=== PATIENT | female | born 1980 | race Caucasian/White ===

== ENCOUNTER 2021-10-30 17:21 | Outpatient (CLI) | payer BC, SELFPAY ==
--- NOTE | ~2021-10-30 | MM_ITS ---
EXAMINATION: MM scrn nabila implant BI w jared HISTORY: Screening mammogram TECHNIQUE: Craniocaudal and mediolateral oblique 3-D tomosynthesis images with implant displacement a nd synthetic 2-D images were generated. Craniocaudal and mediolateral oblique views of the breasts wi thout implant displacement were obtained using full field digital mammography. CAD analysis was submi tted and interpreted. COMPARISON: No prior mammogram is available for comparison at this institution. BREAST PARENCHYMAL COMPOSITION: The breasts are heterogeneously dense, which may obscure small masses . FINDINGS: There is no evidence of suspicious mass, calcification, or architectural distortion to sugg est malignancy in either breast. There has been no suspicious interval change. IMPRESSION: 1. No mammographic evidence of malignancy. 2. Recommend routine screening mammography in one year. BI-RADS Category 1: Negative Reviewed, dictated and finalized at location A.
== END 2021-10-30 17:22 | disposition home or self-care (01) ==
LOC: ANHIMG 17:23
PROVIDERS: PCP Family Medicine; Visit Provider Nurse Practitioner Family
DX: Z12.31 Encounter for screening mammogram for malignant neoplasm of breast (principal)
CPT/HCPCS: 77063; 77067

== ENCOUNTER 2023-11-08 13:58 | Emergency (ER) | payer BC, SELFPAY ==
--- NOTE | ~2023-11-08 | CT_ITS ---
EXAMINATION: CT soft tissue neck w con DATE: 11/08/2023 16:23 INDICATION: TECHNIQUE: Computed tomography (CT) of the neck was performed with 75 mL Omnipaque-350 intravenous co ntrast. The dose-length product was 537.14 mGy-cm. COMPARISON: None FINDINGS: Bilateral palatine tonsillar enlargement with surrounding nasopharyngeal and pharyngeal edema. Diffus e right tonsillar hyperemia. Irregular low-density areas in the left tonsil likely edema or phlegmon, with thin rim enhancement. No definite tonsillar or peritonsillar abscess. The thyroid gland is unre markable. The submandibular and parotid glands are symmetric. Enlarged upper anterior cervical no tiara. There are no masses identified. The superior mediastinum is unremarkable. The airway is un remarkable. Parapharyngeal and pre-glottic fat planes are preserved. Normal enhancing neck vessel s. The orbits are unremarkable. Retention cyst/polyp in the right maxillary sinus, the remaining s inuses and mastoid air cells are well aerated. Clear lungs. Unremarkable regional bones. IMPRESSION: Bilateral palatine tonsillitis. Tonsillar edema/phlegmon in the left palatine tonsil, no definite ton sillar or peritonsillar abscess detected at this time. Upper anterior cervical lymphadenopathy. Reviewed, dictated and finalized at location [facility]. IMPRESSION: Bilateral palatine tonsillitis. Tonsillar edema/phlegmon in the left palatine t onsil, no definite tonsillar or peritonsillar abscess detected at this time. Up per anterior cervical lymphadenopathy.
[2023-11-08 14:19] VITALS: BP 103/63; PULSE 96; RESP 15; TEMP 36.7; O2SAT 100
--- NOTE | 2023-11-08 15:12 | ED.GENADULT ---
HPI - General Adult General Chief complaint: Unspecified <Jasmyne Child November, PAPER ROLLER - Last Filed: 11/08/23 15:21> Stated complaint: ST <Jasmyne Child November, PAPER ROLLER - Last Filed: 11/08/23 15:21> Time Seen by Provider: 11/08/23 15:13 <Jasmyne Child November, PAPER ROLLER - Last Filed: 11/08/23 15:21> Focused HPI: Kim Ramirez is a 43 y/o female who presents with reports of severe sore throat that started yesterday, and now getting worse with fevers and feels like she can't swallow. She states the pain is only on the left side of her throat and feels swollen Airway patent/ + erythema with mild exudate present she keeps holding only the left side of her throat, tolerating secretions well She states she has had strep before and this feels much worse. GENERAL: in no acute distress. HEAD: Normocephalic, atraumatic. CHEST: Clear to auscultation. ?No respiratory distress. HEART: Regular rate and rhythm.? NEURO: ?Alert and oriented x3. Patient screened in triage and initial orders placed.? ?Additional care and disposition to be based upon?diagnostic testing and treatment. <Jasmyne Child November, PAPER ROLLER - Last Filed: 11/08/23 15:21> History of Present Illness HPI narrative: Agree with above HPI. <Tom Carpio MD - Last Filed: 11/08/23 18:14> Related Data Allergies/adverse reactions: Allergies Allergy/AdvReac Type Severity Reaction Status Date / Time No Known Allergies Allergy Verified 11/08/23 14:23 <Jasmyne Child November, PAPER ROLLER - Last Filed: 11/08/23 15:21> Review of Systems Review of Systems: All systems reviewed & are unremarkable except as noted in HPI and below <Tom Carpio MD - Last Filed: 11/08/23 18:14> Constitutional: Constitutional: Reports chills, Reports fatigue and Reports fever(s) <Tom Carpio MD - Last Filed: 11/08/23 18:14> ENT: Denies nasal congestion, Reports sore throat and Reports other (pain with swallowing) <Tom Carpio MD - Last Filed: 11/08/23 18:14> Cardiovascular: Cardiovascular: Reports no additional cardiovascular complaints <Tom Carpio MD - Last Filed: 11/08/23 18:14> Respiratory: Respiratory: Reports no additional respiratory complaints <Tom Carpio MD - Last Filed: 11/08/23 18:14> Gastrointestinal: Gastrointestinal: Reports no additional gastrointestinal complaints <Tom Carpio MD - Last Filed: 11/08/23 18:14> PMFSH Past Medical History Medical History: Medical History (Updated 11/08/23 @ 18:07 by Tom Carpio MD) BMI 26.0-26.9,adult BMI 27.0-27.9,adult BMI 28.0-28.9,adult BMI 33.0-33.9,adult Breast implant rupture Micromastia <Jasmyne Rosado PAPER ROLLER - Last Filed: 11/08/23 15:21> Family History Family History: Family History Grandparent Family history of malignant neoplasm of ovary Diabetes mellitus Father No problems noted. Mother Autoimmune disorder Sibling No problems noted. 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 HEAD: Normocephalic, atraumatic. EYES: PERRL and
[2023-11-08] MEDS: KETOROLAC 30 MG/ML VIAL (*BKC) IV PUSH (15:41)
[2023-11-08] MEDS: SODIUM CHLORIDE 0.9% IV 1,000 ML 999 ML IV CONT (15:41)
[2023-11-08] MEDS: ACETAMINOPHEN 500 MG TABLET 1000 MG PO (15:41)
[2023-11-08 15:47] LABS: Basophils Percent Auto 0.2 % (0.2-1.2); Hematocrit 39.3 % (37.0-47.0); Hemoglobin 13.8 g/dL (12.0-15.0); Immature Granulocyte Absolute 0.08 K/mm3 (0.00-0.031); Immature Granulocyte Percent A 0.6 % (0-0.5); Lymphocytes Percent Auto 4.7 % (18.3-44.2); Mean Corpuscular HGB Conc 35.1 g/dl (32-36); Mean Corpuscular Hemoglobin 30.3 pg (26-34); Mean Corpuscular Volume 86.2 fl (80-100); Mean Platelet Volume 10.1 fl (7.4-10.4); Monocytes Absolute Auto 0.3 K/mm3 (0.1-0.6); Monocytes Percent Auto 2.3 % (2.6-8.5); Neutrophils Absolute Auto 11.7 K/mm3 (1.3-6.7); Neutrophils Percent Auto 92.2 % (45.5-73.1); Platelet Count Result 207 k/mm3 (150-375); Red Blood Count 4.56 M/mm3 (4.2-5.4); White Blood Count 12.7 K/mm3 (4.5-10.0)
[2023-11-08 15:57] LABS: Anion Gap 6 mmol/L (4-12); Blood Urea Nitrogen 6 mg/dL (7-17); Calcium 9.3 mg/dL (8.4-10.2); Carbon Dioxide 21 mmol/L (22-30); Chloride 107 mmol/L (98-107); Estimated CRCL calculation 71 ml/min; Estimated Glomerular Filt Rate > 60; Glucose 123 mg/dL (65-110); Potassium 3.8 mmol/L (3.4-5.0); Sodium 134 mmol/L (137-145)
[2023-11-08 16:19] LABS: Strep Group A RT-PCR NOT DETECTED (Negative)
[2023-11-08 16:30] LABS: Influenza A QL RT-PCR Negative (Negative); Influenza B QL RT-PCR Negative (Negative); RSV RNA, RT-PCR Negative (Negative); SARS-CoV-2 RNA PCR Negative (Negative)
[2023-11-08 16:31] VITALS: RESP 20; O2SAT 98
[2023-11-08] MEDS: dexAMETHasone SOD PHOS INJ 10 MG/ML 1 ML VIAL IV PUSH (17:11)
== END 2023-11-08 18:22 | disposition home or self-care (01) ==
PROVIDERS: Nurse Practitioner Family; Emergency Provider Emergency Medicine; PCP Family Medicine
DX: J03.90 Acute tonsillitis, unspecified (principal); Z20.822 Contact with and (suspected) exposure to COVID-19
CPT/HCPCS: 36415; 70491; 80048; 81025; 85025; 87637; 87651; 96361; 96374; 96375; 99284; A9270; J1100; J1885; J7030; Q9967